=== PATIENT | female | born 1940 | race Caucasian/White ===

== ENCOUNTER 2018-02-08 05:44 | Inpatient (IN) | payer MEDICARE, BC ==
--- NOTE | 2018-01-28 20:45 | HP ---
HISTORY AND PHYSICAL: DATE OF SURGERY/ADMISSION: 02/08/18 DATE OF OFFICE VISIT: 01/28/18 SURGEON: Masha Ventura MD* (dictated by SHAMEKA Crain). PROCEDURE: Left total knee arthroplasty. CHIEF COMPLAINT: Left knee pain. HISTORY OF PRESENT ILLNESS: Ms. Pryor is a 77-year-old female with complaints of left knee pain secondary to advanced osteoarthritis. She has failed conservative management and elected to proceed with a left total knee arthroplasty, which is scheduled for 02/08/[address] Ventura. PAST MEDICAL HISTORY: Hypertension, aortic valve disorder, tricuspid valve disorder. PAST SURGICAL HISTORY: Hernia repair x2 with hysterectomy. CURRENT MEDICATIONS: 1. Naproxen 500 mg 1 to 2 tabs daily as needed. 2. Calcium with vitamin D. 3. Multivitamin. 4. Aspirin 81 mg daily. 5. Sertraline 100 mg daily. 6. Losartan potassium 50 mg daily. 7. Citrucel 500 mg 2 tabs twice a day as needed. ALLERGIES: ZITHROMAX. FAMILY HISTORY: Coronary artery disease, hypertension and colon cancer. SOCIAL HISTORY: She is a 77-year-old female. She lives with her . She does not smoke or use drugs. Uses occasional alcohol. REVIEW OF SYSTEMS: A complete 14-point review of systems was reviewed with the patient, it was all negative or noncontributory. PHYSICAL EXAMINATION GENERAL: She is well developed, well nourished, in no acute distress. VITAL SIGNS: She stands 5 feet 3 inches tall, weighs 140 pounds. Her blood pressure is 120/68, her heart rate is 90. HEENT: Normocephalic, atraumatic. NECK: Supple. No palpable lymph nodes. PULMONARY: The lungs are clear to auscultation bilaterally. CARDIO: Regular rate and rhythm. Strong S1, S2. ABDOMEN: Soft, nontender, and nondistended. MUSCULOSKELETAL: Left lower extremity, the skin is intact. There are no open wounds or abrasions. Just some tenderness over the medial and lateral joint line. Range of motion is 5 to 120 degrees with patellofemoral crepitus. She has 2+ dorsalis pedis pulses. Intact sensation in her lower extremity. Muscle group strengths are intact at 5/5. NEUROLOGICAL: She is alert and oriented x3. Cranial nerves II through XII are intact. ASSESSMENT AND PLAN: Ms. Pryor is a 77-year-old female with continued complaints of left knee pain secondary to advanced osteoarthritis. She has failed conservative management and elected to proceed with a left total knee arthroplasty, which is scheduled for 02/08/[address] Ventura discussed the risks and benefits of the surgery at today's visit and all of her questions were answered. She will follow with Dr. Ventura 2 weeks after the surgery. SHAMEKA CRAIN [id number]/[facility] #: [id number] MTDLuciano
[~2018-02-08 05:44] MED LIST: Buffered Lidocaine 0.9% SYRIN* 5 ML/SYR SYRINGE INTRADERM ONE
[2018-02-08] MEDS ORDERED: Famotidine IV* 10 MG/ML 2 ML (20 mg) IV ONE (06:00)
--- OUTSIDE RECORDS SUMMARY | 2018-02-08 06:10 | XMS REPORT ---
:1940 External Reference #:[id number] Author Organization [facility] Address [address] [place] [address] Phone [phone] Care Team Providers Name Role Phone Sharon Munguia M.D. Primary Care Physician Unavailable Payers Type Date Identification Numbers Payment Provider Subscriber Medicare Primary Policy Number: [id number] Medicare - NGS Iram Pryor PayID: [id number] [address] [place] [address] Commercial Policy Number: [id number] [place] Plan Arnie Pryor PayID: [id number] [address] [place] [address] Problems Date Description Provider Status Onset: Irregular heart beat Active Onset: Type 2 diabetes mellitus Active Note: Borderline since 2007 Onset: 01/03/2016 Nuclear senile cataract Conner Wei M.D. Active Onset: Anxiety Active Onset: 01/06/2017 Prediabetes Conner Wei M.D. Active Onset: 01/21/2018 Vitreous degeneration Conner Wei M.D. Active Family History Date Family Member(s) Problem(s) Comments Father No Current Problems Mother Cataract Social History Type Date Description Comments Marital Status Legal Status: Occupation Homemaker ETOH Use Denies alcohol use Smoking Patient has never smoked Recreational Drug Use Denies Drug Use Daily Caffeine Consumes on average 1 cup of hot tea per day Allergies, Adverse Reactions, Alerts Date Description Reaction Status Severity Comments 01/03/2016 Zithromax active Medications Medication Date Status Form Strength Qnty SIG Indications Ordering Provider Systane Active Solution 0.4-0.3% as needed Conner Wei M.D. Multi Vitamin Active Tablets Unknown Daily 000 Caltrate 600+D Active Tablets 600-400mg-U Unknown 000 nit Metamucil Active Powder 30.9% Unknown 000 Losartan Active Tablets 50mg [place], Potassium 000 Sharon Murry Sertraline HCL Active Tablets 100mg Take One Unknown 000 Tablet By Mouth Every Day Medications Administered in Office Medication Date Status Form Strength Qnty SIG Indications Ordering Provider Crizal Administered Injection Mckeon 0 Jagdeep A.B.Alicia Results Description No Information Procedures Date CPT Code Description Status 01/06/2017 88566 Determination Of Refractive State Completed 01/06/2017 99759 Est Patient Comprehensive Exam Completed 01/03/2016 08606 Determination Of Refractive State Completed 01/03/2016 29991 Est Patient Comprehensive Exam Completed 12/17/2014 82955 Determination Of Refractive State Completed 12/17/2014 37418 Est Patient Comprehensive Exam Completed 12/05/2013 51504 Determination Of Refractive State Completed 12/05/2013 30511 Est Patient Comprehensive Exam Completed 12/02/2012 59123 Determination Of Refractive State Completed 12/02/2012 62861 Est Patient Comprehensive Exam Completed 10/09/2011 06520 Est Patient Comprehensive Exam Completed 10/09/2011 46812 Determination Of Refractive State Completed 09/30/2010 66480 Determination Of Refractive State Completed 09/30/2010 70290 Est Patient Comprehensive Exam Completed 09/26/2009 13262 Determination Of Refractive State Completed 09/26/2009 56420 Est Patient Comprehensive Exam Completed 09/25/2008 93323 Determination Of Refractive State Completed 09/25/2008 96004 Est Patient Comprehensive Exam Completed 09/20/2007 93749 Determination Of Refractive State Completed 09/20/2007 27502 Est Patient Comprehensive Exam Completed 10/13/2004 40125 Determination Of Refractive State Completed 10/13/2004 73782 Est Patient Comprehensive Exam Completed 11/17/2000 113 Crizal Completed Plan of Care 01/21/2018 - Conner Wei M.D.H25.13 Age-related nuclear cataract, bilateralComments:Smoking can increase the risk of developing or worsening any eye related disease, as well as affect your overall health. If you are a smoker , we strongly recommend that you quit.If you are not a smoker, we strongly recommend that you do not start. You have been diagnosed with cataracts. If you are happy with your vision as it is now, then we will see you at your next scheduled appointment. If you feel like your vision is getting worse before your scheduled appointment, please call Varsha Cooper [phone].Follow up:1 Year Follow Up You can expect to have your eyes dilated at your next visit. If Dr. Wei orders any additional testing, it may require extra time. We recommend that you bring sunglasses, as dilationdrops often make you light sensitive until they wear off. We always recommend you bring someone to drive you home if you are uncomfortable driving with your eyes dilated. If you have any questions before your next visit, feel free to call our office at [phone].E11.9 Type 2 diabetes mellitus without complicationsComments:You have diabetes. I do not detect any changes in both of your retinas from diabetes at this time. Proper control of your diabetes is important for the health of your eyes. Changes in your eyes from diabetes can happen without symptoms, so it is important that you have your eyes examined. Dr. Wei has sent a report to your primary care doctor, letting them know there is no damage from the Diabetes in your eyes.H43.813 Vitreous degeneration, bilateralComments:You have a Posterior Vitreous Detachment. If you have any changes in your floaters or flashing lights , please contact this office.
--- OUTSIDE RECORDS SUMMARY | 2018-02-08 06:10 | XMS REPORT ---
:1940 External Reference #:[id number] Author Organization [facility] Address [address] [address] Phone [phone] Care Team Providers Name Role Phone Sharon Munguia MD Primary Care Physician Unavailable Payers Type Date Identification Numbers Payment Provider Subscriber Medicare Primary Effective: Policy Number: Medicare Iram Pryor 2006 [id number] PayID: [id number] [address] [place] [address] Medigap Part B Policy Number: [id number] [facility] Arnie Pryor PayID: [id number] [address] [place] [address] Problems Date Description Provider Status Onset: 10/01/2014 Chest pain Porter Sanderson M.D., Active FACC, FASNC Onset: 10/15/2015 Tricuspid valve disorder, Porter Sanderson M.D., Active non-rheumatic FACC, FASNC Onset: 12/14/2016 Localized, primary osteoarthritis Masha Ventura M.D. Active Onset: 10/13/2017 Aortic valve disorder Porter Sanderson M.D., Active FACC, FASNC Onset: 01/11/2018 Essential hypertension Porter Sanderson M.D., Active FACC, FASNC Family History Date Family Member(s) Problem(s) Comments General Mother 91 of CHF General Father HTN Father Hypertension Mother Congestive Heart Failure (CHF) Social History Type Date Description Comments Marital Status Lives With Family Occupation Retired Cigarette Use Never Smoked Cigarettes ETOH Use Rarely consumes alcohol Smoking Patient has never smoked Recreational Drug Use Denies Drug Use Daily Caffeine Decaf Hot Tea 3 cups per day Exercise Type/Frequency Exercises regularly exercise 2x a week General Hx Text Allergies, Adverse Reactions, Alerts Date Description Reaction Status Severity Comments 06/18/2014 Zithromax active nausea Medications Medication Date Status Form Strength Qnty SIG Indications Ordering Provider Naproxen 12/14/ Active Tablets 500mg 30tabs 1 tablet M25.562 Masha 2016 with food Lorenzo, by mouth M.D. twice a day as needed Caltrate 600+D / Active Tablets 600-400mg- 1 by mouth Unknown 0000 Unit every day Senior / Active Tablets 1 by mouth Unknown Multivitamin 0000 daily Plus Aspir-Low / Active Tablets 81mg 1 by mouth Unknown 0000 DR every other day Sertraline HCL / Active Tablets 100mg 1 by mouth Unknown 0000 every day Losartan / Active Tablets 50mg 1 by mouth Unknown Potassium 0000 every day Citrucel / Active Tablets 500mg 2 tabs Unknown 0000 once per day Metamucil / Hx 1 teaspoon Unknown 0000 - in a full 2016 water once a day Medications Administered in Office Medication Date Status Form Strength Qnty SIG Indications Ordering Provider Inj, Administered Injection Porter Gabriel Regadenoson, 018 Kin, 0.1 MG Jeanmarie, FACC, FASNC Technetium TC Administered Injection Porter Gabriel 99M 018 Noemi Sanderson M.D., FACC, Per Unit Dose FASNC Up To 40 Millicuries Depomedrol Administered Injection Masha 40MG Rema Ventura M.D. Depomedrol Administered Injection Masha 40MG 017 Jeanmarie Ventura Depomedrol Administered Injection Masha 40MG 017 Jeanmarie Ventura Technetium TC Administered Injection Porter Gabriel 99M 014 Noemi Sanderson M.D., FACC, Per Unit Dose FASNC Up To 40 Millicuries Vital Signs Date Vital Result Comment 01/28/2018 Height 63 inches 5'3" Heart Rate 90 /min BP Systolic 120 mmHg BP Diastolic 68 mmHg Respiratory Rate 16 /min Body Temperature 97.5 F Pain Level 1 01/11/2018 Height 63 inches 5'3" Weight 146.00 lb Heart Rate 64 /min BP Systolic Sitting 148 mmHg Lue reg cuff BP Diastolic Sitting 82 mmHg Lue reg cuff BP Systolic Standing 144 mmHg Lue BP Diastolic Standing 82 mmHg Lue Respiratory Rate 16 /min BMI (Body Mass Index) 25.9 kg/m2 Ejection Fraction 55-60% 10/04/17 10/18/2017 Height 63 inches 5'3" Weight 138.00 lb BP Systolic 140 mmHg BP Diastolic 80 mmHg Body Temperature 97.4 F Pain Level 4 BMI (Body Mass Index) 24.4 kg/m2 10/13/2017 Height 64 inches 5'4" Weight 144.00 lb No shoes Heart Rate 68 /min BP Systolic Sitting 148 mmHg Lue reg cuff BP Diastolic Sitting 88 mmHg Lue reg cuff BP Systolic Standing 156 mmHg Lue reg cuff BP Diastolic Standing 90 mmHg Lue reg cuff Respiratory Rate 15 /min BMI (Body Mass Index) 24.7 kg/m2 Ejection Fraction 55-60% 10/04/2017-echo 09/22/2017 Height 64 inches 5'4" Weight 140.00 lb Respiratory Rate 14 /min Pain Level 5 BMI (Body Mass Index) 24.0 kg/m2 05/14/2017 Height 64 inches 5'4" Weight 140.00 lb Heart Rate 76 /min BP Systolic 126 mmHg BP Diastolic 90 mmHg Respiratory Rate 16 /min Body Temperature 97.8 F Pain Level 0 BMI (Body Mass Index) 24.0 kg/m2 12/30/2016 Height 64 inches 5'4" Weight 139.00 lb Respiratory Rate 17 /min Pain Level 1 BMI (Body Mass Index) 23.9 kg/m2 12/14/2016 Height 64 inches 5'4" Weight 139.00 lb Heart Rate 64 /min BP Systolic 142 mmHg BP Diastolic 78 mmHg BMI (Body Mass Index) 23.9 kg/m2 10/15/2015 Height 53 inches 4'5" Weight 141.00 lb w/o shoes Heart Rate 70 /min irreg BP Systolic Sitting 142 mmHg Rue, reg cuff BP Diastolic Sitting 86 mmHg Rue, reg cuff BP Systolic Standing 130 mmHg Rue BP Diastolic Standing 76 mmHg Rue Respiratory Rate 18 /min BMI (Body Mass Index) 35.3 kg/m2 Ejection Fraction 55-60% as of 10/08/15 echo 10/01/2014 Height 53 inches 4'5" Weight 146.00 lb with out shoes BP Systolic Sitting 134 mmHg La reg cuff BP Diastolic Sitting 70 mmHg La reg cuff BP Systolic Standing 130 mmHg La reg cuff BP Diastolic Standing 70 mmHg La reg cuff BMI (Body Mass Index) 36.5 kg/m2 06/18/2014 Height 53 inches 4'5" Weight 148.00 lb without shoes Heart Rate 62 /min BP Systolic 132 mmHg L arm reg cuff BP Diastolic 80 mmHg L arm reg cuff BP Systolic Sitting 140 mmHg R arm Reg cuff BP Diastolic Sitting 80 mmHg R arm Reg cuff BP Systolic Standing 142 mmHg L arm standing BP Diastolic Standing 86 mmHg L arm standing Respiratory Rate 18 /min BMI (Body Mass Index) 37.0 kg/m2 Results Description No Information Procedures Date CPT Code Description Status 01/11/2018 67266 EKG Tracing & Interpretation Completed 12/20/2017 72541 Stress Test Completed 12/20/2017 02660 Myocardial Perfusion Imaging Tomographic (Spect) Completed Multiple Studies 10/13/2017 12367 EKG Tracing & Interpretation Completed 10/04/2017 36907 ECHO Transthoracic, Real-Time 2D With Doppler And Color Completed Flow 10/04/2017 79080 ECHO Transthoracic, Real-Time 2D With Doppler And Color Completed Flow 09/22/2017 24355 Inject/Drain Joint/Bursa Major Completed 09/14/2017 Colonoscopy Completed 12/14/2016 57714 Inject/Drain Joint/Bursa Major Completed 10/15/2015 17088 EKG Tracing & Interpretation Completed 10/08/2015 44425 ECHO Transthoracic, Real-Time 2D With Doppler And Color Completed Flow 08/13/2014 82598 Stress Test Completed 08/13/2014 15868 Myocardial Perfusion Imaging Tomographic (Spect) Completed Multiple Studies 06/20/2014 60252 Cardiac Event Monitor Completed 04/26/2014 81035 Holter Monitoring 24 HR New Completed 04/10/2014 22558 ECHO Transthoracic, Real-Time 2D With Doppler And Color Completed Flow Encounters Type Date Location Provider CPT E/M Dx Office Visit 01/11/2018 [facility] Porter Sanderson, 84145 Z01.810 2:45p Kait Murry, [facility], [facility] M17.12 I35.1 I36.1 I49.3 Office Visit 10/18/2017 8:15a [facility] Masha Ventura M.D. 26046 M25.562 [facility] M17.0 Office Visit 10/13/2017 1:00p [facility] Portersid Sanderson, 49314 I35.1 Kait Murry, DION, [facility]ST[facility] Office Visit 05/14/2017 2:00p [facility] Masha Ventura M.D. 12561 M25.561 [facility] M25.562 M17.0 Office Visit 12/30/2016 10:30a [facility] Masha Ventura M.D. 85953 M25.562 [facility] M25.462 M17.12 Office Visit 12/14/2016 9:30a [facility] M[facility] Ventura M.D. 75413 M25.562 [facility] M25.462 M17.12 Office Visit 10/15/2015 1:45p [facility] Porter Gabriel Sanderson, 43785 I36.1 Kait Murry, DION, [facility] Office Visit 10/01/2014 1:15p [facility] Porter Rios [facility], 21519 786.50 Kait Murry, FAC, [facility] Office Visit 06/18/2014 12:15p [facility] Porter Rios Sanderson, 20307 785.1 Kait Murry, [facility], [facility] 786.50 Plan of Care Future Appointment(s):02/18/2018 1:15 pm - Masha Ventura M.D. at [facility]02/08/2018 7:30 am - SHAMEKA Lin at [facility]02/08/2018 7:30 am - Julian Vila PA-C at [facility]02/08/2018 7:30 am - SHAMEKA Hoffman at [facility]02/08/2018 7:30 am - Masha Ventura M.D. at [facility]01/28/2018 - Masha Ventura M.D.M25.562 Pain in left kneeFollow up:Follow up: 2 weeks after [id number] Bilateral primary osteoarthritis of knee
[2018-02-08] MEDS ORDERED: Famotidine IV* 10 MG/ML 2 ML (20 mg) ONE (06:38)
[2018-02-08] MEDS ORDERED: ceFAZolin 2 GM in 100 MLS NS (*) BAG IVPB ONE (06:38)
[2018-02-08] MEDS ORDERED: Buffered Lidocaine 0.9% SYRIN* 5 ML/SYR SYRINGE ONE (06:38)
[2018-02-08] MEDS ORDERED: fentaNYL* 50 MCG/ML 2 ML VIAL (100 MCG VIAL) ONE (07:24)
[2018-02-08] MEDS ORDERED: Midazolam* 1 MG/ML 5 ML VIAL (5 MG) ONE (07:24)
[2018-02-08] MEDS ORDERED: oxyCODONE TAB* 5 MG TAB PO PRN ×2 (07:35→08:46)
[2018-02-08] MEDS ORDERED: Magnesium Hydroxide LIQ* 30 ML UDC PO PRN (07:35)
[2018-02-08] MEDS ORDERED: Bisacodyl SUPP* 10 MG SUPP PR PRN (07:35)
[2018-02-08] MEDS ORDERED: Polyethylene Glycol 3350* 17 GM PACKET PO PRN (07:35)
[2018-02-08] MEDS ORDERED: Acetaminophen TAB* 325 MG PO PRN ×2 (07:35→08:46)
[2018-02-08] MEDS ORDERED: Cyclobenzaprine TAB* 10 MG PO PRN (07:35)
[2018-02-08] MEDS ORDERED: Ondansetron INJ* 2 MG/ML VIAL IV PRN (07:35)
[2018-02-08] MEDS ORDERED: diPHENhydraMINE IV* 50 MG/ML 1 ml VIAL (BENADRYL) IV PRN (07:35)
[2018-02-08] MEDS ORDERED: oxyCODONE/Acetamin 5/325 MG* TAB PO PRN (07:35)
[2018-02-08] MEDS ORDERED: Morphine INJ* 2 MG/ML 1 ML CARPUJECT IV PRN (07:35)
[2018-02-08] MEDS ORDERED: Bupivacaine 0.5% SDV PF* 10-30ML VIAL ONE (07:41)
[2018-02-08] MEDS ORDERED: Lidocaine 1% MPF* 2 ML VIAL ONE (07:41)
[2018-02-08] MEDS ORDERED: KETAMINE HCL* 50 MG/ML 10 ML VIAL ONE (07:43)
[2018-02-08] MEDS ORDERED: methylPREDNISolone ACETATE 80* 80 MG/ML 1 ML VIAL ONE (07:45)
[2018-02-08] MEDS ORDERED: ceFAZolin 1 GM in Dextrose (*) 1 GM/50 ML BAG IVPB SCH (08:00)
[2018-02-08] MEDS ORDERED: Propofol* 10 MG/ML 20 ML BTL IV PUSH ONE ×2 (08:08→09:25)
[2018-02-08] MEDS ORDERED: Ketorolac INJ* 30 MG/ML 1 ML VIAL ONE (08:09)
[2018-02-08] MEDS ORDERED: Dexamethasone IV* 4 MG/ML 1 ML (4 MG) ONE (08:09)
[2018-02-08] MEDS ORDERED: Ondansetron INJ* 2 MG/ML VIAL ONE (08:09)
[2018-02-08] MEDS ORDERED: DiMENhydriNATE IV* 50 MG/ML VIAL IV PUSH PRN (08:46)
[2018-02-08] MEDS ORDERED: HYDROmorphone INJ* 1 MG/ML CARPUJECT SYRINGE IV PRN (08:46)
[2018-02-08] MEDS ORDERED: Naloxone* 0.4 MG/ML 1 ML VIAL IV PRN (08:46)
[2018-02-08] MEDS ORDERED: Gabapentin CAP(*) 300 MG PO ONE (08:49)
[2018-02-08] MEDS ORDERED: EPHEDrine (Pressors)* 50 MG/ML VIAL IV PUSH PRN (08:50)
[2018-02-08] MEDS ORDERED: Ropivacaine* 300 MG in NS 0.9% 250 ML* 240 ML EPIDURAL SCH (09:00)
--- NOTE | 2018-02-08 11:18 | RAD ---
Indication: Immediate postop exam following LEFT total knee replacement. Comparison: January 28, 2018 Technique: Portable AP and cross table lateral views LEFT knee. Report: Status post total knee replacement. Surgical drain in place. Post-op fluid and gas is seen in the joint space and anterior subcutaneous tissues. Alignment is anatomic. No periprosthetic fracture evident. IMPRESSION: Unremarkable immediate postoperative appearance following LEFT knee replacement.
[2018-02-08] MEDS ORDERED: Losartan TAB* 25 MG PO SCH (15:00)
[2018-02-08] MEDS: Ibuprofen TAB* 400 MG PO SCH ×2 (16:01→20:25)
[2018-02-08] MEDS: ceFAZolin 1 GM/10 ML SYRINGE IVPB Q8H IVPB SCH ×4 (16:01→23:57)
[2018-02-08] MEDS ORDERED: Warfarin TAB(*) 6 MG PO ONE (17:00)
[2018-02-08] MEDS: Magnesium Hydroxide LIQ* 30 ML UDC PO SCH ×2 (19:04→20:25)
[2018-02-08] MEDS: Docusate CAP* 100 MG PO SCH ×2 (19:04→20:25)
--- NOTE | 2018-02-08 21:32 | CONS ---
HOSPITAL MEDICINE CONSULTATION REPORT: DATE OF CONSULT: 02/08/18 ATTENDING PHYSICIAN: Dr. Masha Ventura. CONSULTING PHYSICIAN: Dr. Shahab Shelton (dictation provided by Jennifer Venegas NP) REASON FOR CONSULT: Medical comanagement in a patient admitted for left total knee arthroplasty. HISTORY OF PRESENT ILLNESS: Ms. Pryor is a 77-year-old female with a past medical history of hypertension, mild aortic valve regurgitation, and mild-to- moderate tricuspid regurgitation, who presents to the hospital today for planned left total knee arthroplasty. Please see the dictated H and P from Dr. Masha Ventura for complete details. In brief, the patient had failed outpatient measures to manage her left knee pain and disability and therefore opted for surgery today. She states prior to coming in, she was feeling in normal state of health and no complaints. She did see Dr. Sanderson, her resident services coordinator, preoperatively for evaluation as well as Dr. Munguia and she was deemed to be medically optimized and appropriate for surgery. PAST MEDICAL HISTORY: 1. Hypertension. 2. Mild aortic valve regurgitation. 3. Wywh-lu-xsgxgbej tricuspid regurgitation. 4. History of premature atrial and ventricular contractions that were symptomatic, but now resolved. PAST SURGICAL HISTORY: History of hernia repair x2 with hysterectomy. MEDICATIONS: As outpatient are: 1. Naproxen as needed. 2. Calcium with vitamin D. 3. Multivitamin. 4. Aspirin 81 mg p.o. daily. 5. Sertraline 100 mg p.o. daily. 6. Losartan 50 mg p.o. daily. 7. Citrucel 500 mg 2 tabs twice a day as needed. ALLERGIES: To AZITHROMYCIN. FAMILY HISTORY: Positive for coronary artery disease, hypertension, and colon cancer. SOCIAL HISTORY: She lives with her . No prior alcohol, tobacco, or drug use. She states that her would be the healthcare proxy. REVIEW OF SYSTEMS: A 14-point review of systems was completed with the patient and all those not mentioned above were negative. PHYSICAL EXAM: Vital Signs: Temperature 98.5, pulse rate 70, respiratory rate 16, O2 saturation 100% on 3 L nasal cannula, blood pressure 124/54. General: Ms. Pryor is examined shortly after arrival to short-stay surgical floor from PACU and is therefore a little bit sleepy. Neuro: She awakens easily to voice. She moves all extremities equally. There is no facial asymmetry or focal weakness. Extraocular movements are intact. Heart: S1, S2. No murmur, rub, or gallop, and regular. Lungs are clear to auscultation bilaterally with no accessory muscle use and good aeration. Abdomen is soft and nontender. Bowel sounds are positive x4. Extremities: No cyanosis or edema. Skin is intact. LABORATORY DATA: Preoperatively, WBC 4.1, hemoglobin , hematocrit 36, platelet count 199. Sodium 137, potassium 3.9, chloride 102, serum bicarbonate 31, BUN 18, creatinine 0.77, glucose 105. ASSESSMENT: Ms. Pryor is a 77-year-old female with a past medical history of hypertension and mild aortic regurgitation as well as emru-[id number] tricuspid regurgitation, who presents to the hospital today with plan for a left total knee arthroplasty. RECOMMENDATIONS: Our recommendations are as follows: 1. Postop day #0 status post left total knee arthroplasty: Management will be per Orthopedic Surgery. The patient will have physical and occupational therapy. She will have pain medication with bowel regimen and we will monitor her H and H. 2. Hypertension. The patient's blood pressure is running in the 120s. Plan to hold losartan in the a.m. until her blood pressure and hydration status can be reevaluated, but that will be resumed based on the clinical course. 3. DVT prophylaxis. With Lovenox and warfarin per Ortho. 4. Code status is full code. TIME SPENT: Approximately 45 minutes was spent in the consultation of this patient, more than half the time was spent with the patient at the bedside reviewing the events leading up to this hospitalization, performing the physical examination, and reviewing my plan of care. JENNIFER VENEGAS, GREGORY [id number]/[facility] #: [id number] ANTONIO
[2018-02-09] MEDS: Ibuprofen TAB* 400 MG PO SCH (03:04)
[2018-02-09 05:27] LABS: Hematocrit 25 % (35-47); Hemoglobin 8.5 g/dl (12.0-16.0); Mean Platelet Volume 9 um3 (7.4-10.4); Platelet Count 147 10^3/ul (150-450)
[2018-02-09 05:40] LABS: INR 1.12 (0.77-1.02)
[2018-02-09 05:44] LABS: EGFR Non-African American 75.7 (>60)
[2018-02-09] MEDS: oxyCODONE/Acetamin 5/325 MG* TAB PO PRN ×3 (07:21→22:34)
[2018-02-09] MEDS: ceFAZolin 1 GM/10 ML SYRINGE IVPB Q8H IVPB SCH ×2 (08:40)
[2018-02-09] MEDS: Docusate CAP* 100 MG PO SCH ×2 (08:42→19:44)
[2018-02-09] MEDS: Magnesium Hydroxide LIQ* 30 ML UDC PO SCH ×2 (08:42→19:44)
[2018-02-09] MEDS: Enoxaparin(*) 30 MG/0.3 ML SYR SUBCUT SCH (12:14)
--- NOTE | 2018-02-09 13:09 | PN ---
Subjective Date of Service: 02/09/18 Interval History: Patient feeling better. Rosario 3/10 in knee. Able to walk without significantly increased pain with PT. Patient has not urinated since small removed at 0800. Patient is passing flatus but has had no BM. Patient denies F/C, N/V, abdominal pain, Dizziness, changes in vision, or other pain. Patient complains of dry mouth. Family History: Unchanged from Admission Social History: Unchanged from Admission Past Medical History: Unchanged from Admission Objective Active Medications: Acetaminophen (Tylenol Tab*) 650 mg PO Q4H PRN PRN Reason: PAIN OR TEMPERATURE Bisacodyl (Dulcolax Supp*) 10 mg ID DAILY PRN PRN Reason: constipation Cyclobenzaprine HCl (Flexeril Tab*) 10 mg PO TID PRN PRN Reason: SPASMS Diphenhydramine HCl (Benadryl Iv*) 12.5 mg IV Q6H PRN PRN Reason: PRURITIS Docusate Sodium (Colace Cap*) 100 mg PO BID [facility] Last Admin: 02/09/18 08:42 Dose: 100 mg Enoxaparin Sodium (Lovenox(*)) 30 mg SUBCUT Q24H [facility] Last Admin: 02/09/18 12:14 Dose: 30 mg Lactated Ringer's (Lactated Ringers 1000 Ml Bag*) 1,000 mls @ 100 mls/hr IV PER RATE [facility] Last Admin: 02/09/18 08:39 Dose: 100 mls/hr Lactulose (Lactulose*) 30 ml PO Q6H PRN PRN Reason: constipation Magnesium Hydroxide (Milk Of Magnesia Liq*) 30 ml PO BID [facility] Last Admin: 02/09/18 08:42 Dose: 30 ml Magnesium Hydroxide (Milk Of Magnesia Liq*) 30 ml PO Q6H PRN PRN Reason: constipation Morphine Sulfate (Morphine Inj (Syringe)*) 2 mg IV Q2H PRN PRN Reason: PAIN Last Admin: 02/08/18 13:57 Dose: 2 mg Ondansetron HCl (Zofran Inj*) 4 mg IV Q6H PRN PRN Reason: nausea Last Admin: 02/08/18 11:51 Dose: 4 mg Oxycodone HCl (Roxycodone Tab*) 10 mg PO Q4H PRN PRN Reason: SEVERE PAIN Last Admin: 02/09/18 04:47 Dose: 10 mg Oxycodone/Acetaminophen (Percocet 5/325 Tab*) 2 tab PO Q4H PRN PRN Reason: PAIN Last Admin: 02/09/18 12:14 Dose: 2 tab Oxycodone/Acetaminophen (Percocet 5/325 Tab*) 1 tab PO Q4H PRN PRN Reason: PAIN Last Admin: 02/09/18 07:21 Dose: 1 tab Pharmacy Profile Note (Coumadin Per Pharmacy*) 0 note FOLLOW UP 1700 RANDY Polyethylene Glycol/Electrolytes (Miralax*) 17 gm PO DAILY PRN PRN Reason: Constipation Warfarin Sodium (Coumadin Tab(*)) 6 mg PO ONCE@1700 ONE PRN Reason: Protocol Stop: 02/09/18 17:01 Vital Signs - 8 hr 02/09/18 02/09/18 02/09/18 06:41 07:21 07:25 Temperature 97.8 F Pulse Rate 80 Respiratory 16 16 17 Rate Blood Pressure 129/58 (mmHg) O2 Sat by Pulse 97 Oximetry 02/09/18 02/09/18 02/09/18 08:00 10:22 11:49 Temperature 98.5 F Pulse Rate 71 Respiratory 18 16 17 Rate Blood Pressure 136/56 (mmHg) O2 Sat by Pulse 97 93 Oximetry 02/09/18 12:14 Temperature Pulse Rate Respiratory 18 Rate Blood Pressure (mmHg) O2 Sat by Pulse Oximetry Oxygen Devices in Use Now: None Appearance: Patient is a 77yo female who appears stated age and is sitting in the bed in [facility]. Eyes: No Scleral Icterus, PERRLA Ears/Nose/Mouth/Throat: NL Teeth, Lips, Gums, Clear Oropharnyx, - - Dry oropharynx. Neck: NL Appearance and Movements; NL JVP, Trachea Midline Respiratory: Symmetrical Chest Expansion and Respiratory Effort, Clear to Auscultation Cardiovascular: NL Sounds; No Murmurs; No JVD, RRR, - - 1+ edema in LLE. Abdominal: NL Sounds; No Tenderness; No Distention Lymphatic: No Cervical Adenopathy Extremities: No Clubbing, Cyanosis Skin: No Nodules or Sclerosis, - - Bulky dressing covering left knee. Neurological: Alert and Oriented x 3, NL Sensation, NL Muscle Strength and Tone Result Diagrams: 02/09/18 05:16 02/09/18 05:16 Assess/Plan/Problems-Billing Assessment: Patient is a 77yo female with a PMH significant for HTN who is S/P LTKA and is doing well. - Patient Problems (1) Status post left knee replacement Current Visit: Yes Status: Acute Code(s): Z96.652 - PRESENCE OF LEFT ARTIFICIAL KNEE JOINT SNOMED Code(s): 2413152871340 Comment: POD #1. Patient has well controlled pain. No urination or BM yet. No abdominal discomfort at this time. Small removed at 0800 today. Management per primary team. (2) HTN (hypertension) Current Visit: Yes Status: Acute Code(s): I10 - ESSENTIAL (PRIMARY) HYPERTENSION SNOMED Code(s): 54026110 Comment: Patient is normotensive with an upward trend. Continue to hold medications and resume when indicated. (3) Anemia Current Visit: Yes Status: Acute Code(s): D64.9 - ANEMIA, UNSPECIFIED SNOMED Code(s): 603455930 Comment: Slightly anemic preoperatively. Will monitor. Will order RBC indices from the AM. Was previously normocytic with slight anisocytosis. (4) DVT prophylaxis Current Visit: Yes Status: Acute Code(s): KUA1473 - SNOMED Code(s): 024994805 Comment: Lovenox to Warfarin. (5) Full code status Current Visit: Yes Status: Acute Code(s): Z78.9 - OTHER SPECIFIED HEALTH STATUS SNOMED Code(s): 851486015 Status and Disposition: Inpatient. Disposition per ortho.
--- NOTE | 2018-02-09 15:08 | OP ---
OPERATIVE REPORT: DATE OF OPERATION: 02/08/18 DATE OF : 36 ATTENDING SURGEON: Masha Ventura MD [employer] ENGINEER: SHAMEKA Vega Ms. did help throughout the procedure with preparation of the leg, wound retraction, manipulation of the knee, and wound closure. ANESTHESIOLOGIST: Dr. Brown. ANESTHESIA: Spinal. PRE-OP DIAGNOSES: 1. 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 2. Right knee osteoarthritis with pain and swelling. POST-OP DIAGNOSES: 1. 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 2. Right knee osteoarthritis with pain and swelling. OPERATIVE PROCEDURE: 1. Left total knee arthroplasty. 2. Right knee intraarticular injection of 80 mg Depo-Medrol and 6 cc of 0.5% Marcaine. TOURNIQUET TIME: 45 minutes. COMPLICATIONS: None. ESTIMATED BLOOD LOSS: 200 cc. SPECIMENS: Bone and cartilage from the left knee joint sent to pathology. HARDWARE USED: This is cemented [employer] total knee arthroplasty hardware, 2 packages of Simplex bone cement. For the femur, a size 5 narrow left posterior stabilized Legion femoral component. For the tibia, a size 3 left tibial base plate Josie II. For the insert, a 9-mm posterior stabilized articular insert size 3/4, and for the patella a 32 mm 3-peg all poly patella. BRIEF HISTORY/INDICATIONS: Ms. Pryor is a 77-year-old female with years of increasingly severe bilateral knee pain. She failed conservative treatment with antiinflammatories, pain medications, physical therapy, brace wear, and intraarticular injections. Due to continued pain and decreased quality of life she elected to undergo a left total knee arthroplasty. She did request a steroid injection in the right knee under anesthesia at the time of surgery. Radiographs showed bone-on- bone arthritis with valgus deformity of the bilateral knees. Informed consent was obtained from the patient. She understood the risks of surgery include, but were not limited to bleeding, infection, damage to nearby structures, continued pain, need for further surgery , intraoperative fracture, nerve palsy, hardware failure or loosening, knee stiffness, loss of motion, stroke, heart attack, blood clot, and . She wished to proceed. INTRAOPERATIVE FINDINGS: The patient was found to have severe end-stage arthritis of the left knee joint with tricompartmental full-thickness loss of cartilage. She had 12 degrees valgus deformity at the start of the case, this was corrected to anatomic alignment. She had a hyperplastic lateral femoral condyle. DESCRIPTION OF PROCEDURE: Ms. Pryor was identified in the preanesthesia unit. Informed consent was signed and placed in the chart. The patient's right knee was marked for injection and her left knee was marked for surgery, left total knee arthroplasty. She was taken to the operating room and placed under spinal anesthesia. A Castillo catheter was placed. The right knee was sterilely prepped and an intraarticular injection of 80 mg of Depo-Medrol and 6 cc 0.25% Marcaine were placed in the right knee. The patient's knee was then cleaned and a Band- Aid was applied. Formal time-out was performed before this procedure. Next, tourniquet was placed on the left thigh. Left lower extremity was prepped and draped in the usual sterile fashion. Preop time-out was made to correctly identify the patient, side and site. Appropriate perioperative antibiotics were given within 1 hour of incision. Tourniquet was inflated until the tourniquet time for this procedure was 45 minutes. A midline incision was made with a 10 blade and carried down to the extensor mechanism. A new 10 blade was used to make a standard medial parapatellar arthrotomy. The patella was subluxed laterally. Electrocautery was used to subperiosteally elevate the soft tissue off the superomedial tibia to the mid sagittal plane. The knee was flexed up. Anterior horn of the lateral meniscus and ACL were sharply released. A drill was used to enter the distal femur. Intramedullary distal femoral cutting guide was pinned on the distal femur. Lateral femoral condylar hypoplasia was noted and accounted for. Distal femoral cut was made with an oscillating saw. Next, the external rotation guide was placed on the distal femur and the distal femur was sized to a size 5. Size 5 multi- cutting jig was pinned on the distal femur. The oscillating saw was used to make the appropriate 4 chamfer cuts. PCL was completely released. The tibia was subluxed anteriorly. Extramedullary tibial cutting guide was pinned on the proximal tibia. Oscillating saw was used to make the proximal tibial cut perpendicular to the mechanical axis of the tibia. The bone was carefully removed. The knee was brought out into full extension. A spacer block had excellent fit. There was medial and lateral ligamentous balancing. Very minimal MCL laxity was noted. Flexion and extension gaps were well balanced. Lamina dog walker was placed both medially and laterally. Any remaining meniscus was carefully removed using electrocautery. Curved osteotome was used to remove posterior osteophytes. Tibial tray and drop adina were placed and once again confirmed a satisfactory tibial cut. A right size 5 narrow femoral trial was impacted on to the distal femur and had excellent fit. The box for the posterior stabilized implant was prepared using a reamer and box-cut osteotome. A size 3 tibial tray trial with a 9-mm insert trial was placed. The knee was taken through range of motion. Knee had full extension to 130 degrees of flexion with satisfactory patellofemoral tracking. The patella was everted. A 7 mm of patellar bone and cartilage was carefully removed using an oscillating saw. The patella was sized to a size 32. Three peg holes were drilled through the size 32 guide. The 32 trial patella was placed and the knee was taken through range of motion. A 7.5 thickness trial was chosen. There was satisfactory patellofemoral tracking. All trials were carefully removed. The tibia was subluxed anteriorly and sized to a size 3. Size 3 keel punch was used to prepare the proximal tibia. All bony cut surfaces were copiously irrigated with sterile saline and dried. The final implants were cemented into place starting with the tibia followed by the femur and last the patella. A 9-mm insert trial was placed and the knee was brought out into full extension. The cement was allowed to fully cure. Tourniquet was turned down at 45 minutes. Once the cement had fully cured, the knee was copiously irrigated. Electrocautery was used to obtain meticulous hemostasis. The insert trial was removed. Any excess cement was carefully removed from around the capsule and implant. Final insert chosen was a 9-mm posterior stabilized articular insert, size 3-4. This was locked into position on the tibial tray. Stability of the insert was checked and rechecked and noted to be stable. The knee was copiously irrigated with sterile saline. The extensor mechanism was closed using interrupted #1 Vicryl over a medium Hemovac drain. The rest of the incision was closed in a layered fashion with 0 and 2-0 Vicryl. Skin was closed using running 3-0 nylon suture. Sterile Xeroform, 4x4's, and Webril were used to cover the incision. Ricardo wrap and cold pack were placed over this. The patient's anesthesia was reversed without difficulty. She was taken to the PACU in stable condition. Intended weight bearing will be weight bearing as tolerated. Intended DVT prophylaxis will be Coumadin with a Lovenox bridge. [id number]/[facility] #: [id number] [facility] HOSPITALLuciano
--- NOTE | 2018-02-09 16:22 | PN ---
Progress Note - Progress Note Date of Service: 02/09/18 SOAP: Subjective: []Patient seen OOB in chair. She feels well with tolerable left knee pain. Denies dizziness, CP, SOB, leg numbness. Objective: [] Vital Signs Temp 98.1 F 02/09/18 15:44 Pulse 85 02/09/18 15:44 Resp 16 02/09/18 15:44 BP 144/72 02/09/18 15:44 Pulse Ox 92 02/09/18 16:00 Intake & Output 02/08/18 02/09/18 02/09/18 18:59 06:59 18:59 Intake Total 2225 1503 1860 Output Total 1350 1470 600 Balance 508 79 8718 Intake: IV Fluids 1800 1003 1395 ABX - CEFAZOLIN 20 10 LR 2731 500 9586 Oral 425 500 465 Output: Urine 600 Castillo 1350 1470 Laboratory Last Values Hgb 8.5 g/dl (12.0-16.0) L 02/09/18 05:16 Hct 25 % (35-47) L 02/09/18 05:16 Plt Count 147 10^3/ul (150-450) L 02/09/18 05:16 MPV 9 um3 (7.4-10.4) 02/09/18 05:16 INR (Anticoag Therapy) 1.12 (0.77-1.02) H 02/09/18 05:16 Sodium 130 mmol/L (133-145) L 02/09/18 05:16 Potassium 3.9 mmol/L (3.5-5.0) 02/09/18 05:16 Chloride 98 mmol/L (101-111) L 02/09/18 05:16 Carbon Dioxide 29 mmol/L (22-32) 02/09/18 05:16 Anion Gap 3 mmol/L (2-11) 02/09/18 05:16 BUN 11 mg/dL (6-24) 02/09/18 05:16 Creatinine 0.74 mg/dL (0.51-0.95) 02/09/18 05:16 Est GFR ( Amer) 97.4 (>60) 02/09/18 05:16 Est GFR (Non-Af Amer) 75.7 (>60) 02/09/18 05:16 BUN/Creatinine Ratio 14.9 (8-20) 02/09/18 05:16 Glucose 134 mg/dL (70-100) H 02/09/18 05:16 POC Glucose (mg/dL) 95 mg/dL (70-100) 02/08/18 06:54 Calcium 8.2 mg/dL (8.6-10.3) L 02/09/18 05:16 General: Well appearing, NAD LLE: Drain pulled with tip intact and without complication. Dressing CDI without surrounding erythema. DF/PF intact. DP/PT 2+. Sensation intact distally BL LE: Calves supple and nontender without erythema, edema or palpable cords. Assessment: []POD 1 sp left total knee arthroplasty 02/08 Dr Ventura Plan: []WBAT PT/OT lovenox, coumadin 6 mg
[2018-02-09] MEDS ORDERED: Warfarin TAB(*) 6 MG PO ONE (17:00)
[2018-02-10 05:45] LABS: ABS Basophils 0 10^3/ul (0-0.2); ABS Eosinophils 0.1 10^3/ul (0-0.6); ABS Lymphocytes 1.2 10^3/ul (1.0-4.8); ABS Monocytes 0.9 10^3/ul (0-0.8); ABS Neutrophils 3.8 10^3/ul (1.5-7.7); ABS Nucleated RBC 0 10^3/ul; Eosinophil % 1.2 % (0-6); Hematocrit 24 % (35-47); Hemoglobin 8.1 g/dl (12.0-16.0); Lymphocyte % 20.4 % (25-47); Mean Corpuscular HGB Conc 34 g/dl (31-36); Mean Corpuscular Hemoglobin 32 pg (27-31); Mean Corpuscular Volume 94 fL (80-97); Mean Platelet Volume 9 um3 (7.4-10.4); Nucleated Red Blood Cells % 0; Platelet Count 136 10^3/ul (150-450); Red Blood Count 2.58 10^6/ul (4.0-5.4); Red Cell Distribution Width 14 % (10.5-15); White Blood Count 6.1 10^3/ul (3.5-10.8)
[2018-02-10 06:02] LABS: INR 1.35 (0.77-1.02)
[2018-02-10] MEDS: Magnesium Hydroxide LIQ* 30 ML UDC PO SCH (08:24)
[2018-02-10] MEDS: oxyCODONE/Acetamin 5/325 MG* TAB PO PRN ×2 (08:24→13:44)
[2018-02-10] MEDS: Docusate CAP* 100 MG PO SCH (08:24)
--- NOTE | 2018-02-10 09:15 | PN ---
Progress Note - Progress Note Date of Service: 02/10/18 SOAP: Subjective: []Patient seen at bedside. She has no complaints, left knee pain is tolerable. No CP, SOB, leg numbness, nausea or dizziness. Patient desires to and feels safe to discharge home today. Objective: [] Vital Signs Temp 98.8 F 02/10/18 07:48 Pulse 88 02/10/18 08:27 Resp 20 02/10/18 08:24 BP 135/68 02/10/18 07:48 Pulse Ox 94 02/10/18 08:27 Intake & Output 02/09/18 02/10/18 02/10/18 18:59 06:59 18:59 Intake Total 1860 500 Output Total 1200 1550 Balance 660 -1050 Intake: IV Fluids 1395 ABX - CEFAZOLIN 10 LR 1385 Oral 465 500 Output: Urine 1200 1550 Laboratory Last Values WBC 6.1 10^3/ul (3.5-10.8) 02/10/18 04:43 RBC 2.58 10^6/ul (4.0-5.4) L 02/10/18 04:43 Hgb 8.1 g/dl (12.0-16.0) L 02/10/18 04:43 Hct 24 % (35-47) L 02/10/18 04:43 MCV 94 fL (80-97) 02/10/18 04:43 MCH 32 pg (27-31) H 02/10/18 04:43 MCHC 34 g/dl (31-36) 02/10/18 04:43 RDW 14 % (10.5-15) 02/10/18 04:43 Plt Count 136 10^3/ul (150-450) L 02/10/18 04:43 MPV 9 um3 (7.4-10.4) 02/10/18 04:43 Neut % (Auto) 62.7 % (38-83) 02/10/18 04:43 Lymph % (Auto) 20.4 % (25-47) L 02/10/18 04:43 [place] % (Auto) 15.4 % (0-7) H 02/10/18 04:43 Eos % (Auto) 1.2 % (0-6) 02/10/18 04:43 Baso % (Auto) 0.3 % (0-2) 02/10/18 04:43 Absolute Neuts (auto) 3.8 10^3/ul (1.5-7.7) 02/10/18 04:43 Absolute Lymphs (auto) 1.2 10^3/ul (1.0-4.8) 02/10/18 04:43 Absolute Monos (auto) 0.9 10^3/ul (0-0.8) H 02/10/18 04:43 Absolute Eos (auto) 0.1 10^3/ul (0-0.6) 02/10/18 04:43 Absolute Basos (auto) 0 10^3/ul (0-0.2) 02/10/18 04:43 Absolute Nucleated RBC 0 10^3/ul 02/10/18 04:43 Nucleated RBC % 0 02/10/18 04:43 INR (Anticoag Therapy) 1.35 (0.77-1.02) H 02/10/18 04:42 Sodium 135 mmol/L (133-145) 02/10/18 04:43 Potassium 3.9 mmol/L (3.5-5.0) 02/09/18 05:16 Chloride 98 mmol/L (101-111) L 02/09/18 05:16 Carbon Dioxide 29 mmol/L (22-32) 02/09/18 05:16 Anion Gap 3 mmol/L (2-11) 02/09/18 05:16 BUN 11 mg/dL (6-24) 02/09/18 05:16 Creatinine 0.74 mg/dL (0.51-0.95) 02/09/18 05:16 Est GFR ( Amer) 97.4 (>60) 02/09/18 05:16 Est GFR (Non-Af Amer) 75.7 (>60) 02/09/18 05:16 BUN/Creatinine Ratio 14.9 (8-20) 02/09/18 05:16 Glucose 134 mg/dL (70-100) H 02/09/18 05:16 POC Glucose (mg/dL) 95 mg/dL (70-100) 02/08/18 06:54 Calcium 8.2 mg/dL (8.6-10.3) L 02/09/18 05:16 Vitamin B12 Cancelled 02/10/18 04:43 Folate Cancelled 02/10/18 04:43 General: Well appearing, NAD LLE: Dressing changed, incision with well approximated wound edges, CDI. No surrounding erythema. DF/PF intact. DP/PT 2+. Sensation intact distally BL LE: Calves supple and nontender without erythema, edema or palpable cords. Assessment: []POD 2 sp left total knee arthroplasty 02/08 Dr Ventura Plan: []WBAT PT/OT lovenox, coumadin 6 mg DC home today
[2018-02-10] MEDS ORDERED: Losartan TAB* 25 MG PO SCH (11:00)
[2018-02-10] MEDS: Enoxaparin(*) 30 MG/0.3 ML SYR SUBCUT SCH (11:12)
--- NOTE | 2018-02-10 11:24 | PN ---
Subjective Date of Service: 02/10/18 Interval History: Patient states pain is 4/10 at rest and not worse with walking. Patient states that she feels good, is urinating and passing flatus but has no BM and doesn't feel like she needs to have one at this time. Patient denies lightheadedness, dizziness on standing, CP, SOB, or palpitations. 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 Patient denies any knowledge of being anemic in the past. Family History: Unchanged from Admission Social History: Unchanged from Admission Past Medical History: Unchanged from Admission Objective Active Medications: Acetaminophen (Tylenol Tab*) 650 mg PO Q4H PRN PRN Reason: PAIN OR TEMPERATURE Last Admin: 02/10/18 08:23 Dose: 650 mg Bisacodyl (Dulcolax Supp*) 10 mg MS DAILY PRN PRN Reason: constipation Cyclobenzaprine HCl (Flexeril Tab*) 10 mg PO TID PRN PRN Reason: SPASMS Diphenhydramine HCl (Benadryl Iv*) 12.5 mg IV Q6H PRN PRN Reason: PRURITIS Docusate Sodium (Colace Cap*) 100 mg PO BID [facility] Last Admin: 02/10/18 08:24 Dose: 100 mg Enoxaparin Sodium (Lovenox(*)) 30 mg SUBCUT Q24H [facility] Last Admin: 02/10/18 11:12 Dose: 30 mg Lactated Ringer's (Lactated Ringers 1000 Ml Bag*) 1,000 mls @ 100 mls/hr IV PER RATE [facility] Last Admin: 02/09/18 08:39 Dose: 100 mls/hr Lactulose (Lactulose*) 30 ml PO Q6H PRN PRN Reason: constipation Losartan Potassium (Cozaar Tab*) 50 mg PO DAILY [facility] Last Admin: 02/10/18 11:12 Dose: 50 mg Magnesium Hydroxide (Milk Of Magnesia Liq*) 30 ml PO BID [facility] Last Admin: 02/10/18 08:24 Dose: 30 ml Magnesium Hydroxide (Milk Of Magnesia Liq*) 30 ml PO Q6H PRN PRN Reason: constipation Morphine Sulfate (Morphine Inj (Syringe)*) 2 mg IV Q2H PRN PRN Reason: PAIN Last Admin: 02/08/18 13:57 Dose: 2 mg Ondansetron HCl (Zofran Inj*) 4 mg IV Q6H PRN PRN Reason: nausea Last Admin: 02/08/18 11:51 Dose: 4 mg Oxycodone HCl (Roxycodone Tab*) 10 mg PO Q4H PRN PRN Reason: SEVERE PAIN Last Admin: 02/09/18 04:47 Dose: 10 mg Oxycodone/Acetaminophen (Percocet 5/325 Tab*) 2 tab PO Q4H PRN PRN Reason: PAIN Last Admin: 02/09/18 12:14 Dose: 2 tab Oxycodone/Acetaminophen (Percocet 5/325 Tab*) 1 tab PO Q4H PRN PRN Reason: PAIN Last Admin: 02/10/18 08:24 Dose: 1 tab Pharmacy Profile Note (Coumadin Per Pharmacy*) 0 note FOLLOW UP 1700 RANDY Last Admin: 02/09/18 17:54 Dose: 1 note Polyethylene Glycol/Electrolytes (Miralax*) 17 gm PO DAILY PRN PRN Reason: Constipation Warfarin Sodium (Coumadin Tab(*)) 6 mg PO ONCE@1700 ONE PRN Reason: Protocol Stop: 02/10/18 17:01 Vital Signs - 8 hr 02/10/18 02/10/18 02/10/18 04:05 04:31 07:48 Temperature 101.0 F 99.6 F 98.8 F Pulse Rate 85 94 Respiratory 16 16 Rate Blood Pressure 136/59 135/68 (mmHg) O2 Sat by Pulse 96 91 Oximetry 02/10/18 02/10/18 02/10/18 08:00 08:24 08:27 Temperature Pulse Rate 88 Respiratory 18 20 Rate Blood Pressure (mmHg) O2 Sat by Pulse 94 94 Oximetry 02/10/18 11:10 Temperature Pulse Rate Respiratory 18 Rate Blood Pressure (mmHg) O2 Sat by Pulse Oximetry Oxygen Devices in Use Now: None Appearance: Patient is a 77yo female who appears stated age and is sitting in the bed in [place]. Eyes: No Scleral Icterus, PERRLA Ears/Nose/Mouth/Throat: NL Teeth, Lips, Gums, Clear Oropharnyx, Mucous Membranes Moist Neck: NL Appearance and Movements; NL JVP, Trachea Midline Respiratory: Symmetrical Chest Expansion and Respiratory Effort, Clear to Auscultation Cardiovascular: NL Sounds; No Murmurs; No JVD, RRR, - - 1+ edema in LLE. Abdominal: NL Sounds; No Tenderness; No Distention, No Hepatosplenomegaly Lymphatic: No Cervical Adenopathy Extremities: No Edema, No Clubbing, Cyanosis Skin: No Rash or Ulcers, No Nodules or Sclerosis Neurological: Alert and Oriented x 3, NL Sensation, NL Muscle Strength and Tone , - - CN II-XII intact. Result Diagrams: 02/10/18 04:43 02/10/18 04:43 Assess/Plan/Problems-Billing Assessment: Patient is a 77yo female with a PMH significant for HTN who is S/P LTKA and is doing well. - Patient Problems (1) Status post left knee replacement Current Visit: Yes Status: Acute Code(s): Z96.652 - PRESENCE OF LEFT ARTIFICIAL KNEE JOINT SNOMED Code(s): 5694399939004 Comment: POD #2. Patient has well controlled pain. Urinating independantly. Passing flatus but no BM yet. No abdominal discomfort at this time. Pain 4/10 at rest. Management per primary team. (2) HTN (hypertension) Current Visit: Yes Status: Acute Code(s): I10 - ESSENTIAL (PRIMARY) HYPERTENSION SNOMED Code(s): 54947163 Comment: Normotensive. Resume Losartan (3) Anemia Current Visit: Yes Status: Acute Code(s): D64.9 - ANEMIA, UNSPECIFIED SNOMED Code(s): 238085874 Comment: Slightly anemic preoperatively. Trended down slightly to 8.1. Hyperchromic. Folate and B12 pending. Patient should have a CBC within 1 week of discharge. History of CLL precursor. Recommend possible hematology follow up if no other explanation. (4) DVT prophylaxis Current Visit: Yes Status: Acute Code(s): LEF4383 - SNOMED Code(s): 953549584 Comment: Lovenox to Warfarin. INR 1.35 today. (5) Full code status Current Visit: Yes Status: Acute Code(s): Z78.9 - OTHER SPECIFIED HEALTH STATUS SNOMED Code(s): 714871708 Status and Disposition: Inpatient. Disposition per ortho.
[2018-02-10 11:57] VITALS: BP 132/63
[2018-02-10] MEDS ORDERED: Warfarin TAB(*) 6 MG PO ONE (17:00)
--- NOTE | 2018-02-11 23:05 | DS ---
DISCHARGE SUMMARY: DATE OF ADMISSION: 02/08/18 same-day of surgery. DATE OF DISCHARGE: ATTENDING PROVIDER: Dr. Masha Ventura.* (DICTATED BY SHAMEKA VERA) CLIPPER AUTOMATIC: SHAMEKA Vega PREOP DIAGNOSES: 1. 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 2. Right knee osteoarthritis with pain and swelling. OPERATIVE PROCEDURE: 1. Left total knee arthroplasty. 2. Right knee intra-articular injection of 80 mg of Depo-Medrol and 6 cc of 0.5 % Marcaine. HISTORY OF PRESENT ILLNESS: Ms. Pryor is a 77-year-old female with increasingly severe bilateral knee pain. She has failed conservative management with anti- inflammatories, pain medication, physical therapy, and brace wearing. She elected to undergo a left total knee arthroplasty and right knee intra- articular injection. HOSPITAL COURSE: The patient was admitted to [facility] on . She underwent a left total knee arthroplasty and a right knee intra- articular injection without complication. She recovered briefly in the PACU and then was transferred to the short-stay surgical unit in stable condition. During her stay, she was seen by Physical Therapy, Occupational Therapy, and Medicine. On postop day 1, she was well appearing, in no acute distress. Drain was pulled by Dr. Ventura with tip intact and without complication. Dressing was clean, dry, and intact without surrounding erythema. Dorsiflexion and plantarflexion intact. Dorsalis pedis and posterior tibial pulse 2+. Sensation intact distally bilateral. Calves supple and nontender without erythema, edema, or palpable cords. Postop day 2, temperature 98.8, pulse 88, respiratory rate 20, blood pressure 135/68, pulse ox 94. Hemoglobin 8.1, hematocrit 24, platelet count 136. INR 1.35. The patient was again well appearing and in no acute distress. Her dressing was changed and the incision was clean, dry, and intact with well approximated wound edges. She was being orthopedically and medically stable for discharge home. DISCHARGE MEDICATIONS: Resume home medications aside from naproxen. New medications include: 1. Docusate 100 mg p.o. b.i.d. 2. Percocet 5/325 one to two tabs every 4 to 6 hours p.r.n., max daily dose of 10. 3. Warfarin 2 mg 1 to 3 tabs daily adjusted by INR draws. DISCHARGE PLAN: Weightbearing as tolerated. Shower postop day 3, do not submerge the wound. Home nurses to do wound check and blood draws Mondays and . At your first blood draw, you have a CBC rechecked noted from a visiting home nurse service. Coumadin dosing you will take 6 mg on 02/10/18, through 02/13/18 2 mg daily and recheck the INR for new dosing instructions on 02/14/18. Pain control with Percocet 5/325 one to two tabs every 4 to 6 hours as needed for pain, max daily dose of 10 tablets. Follow up with Dr. Ventura within 10 to 14 days. SHAMEKA VERA [id number]/[facility] #: [id number] [facility]
== END 2018-02-10 14:12 | disposition home health service (06) | DRG 470 ==
LOC: AA 06:05 → SSU 11:32
PROVIDERS: ADMIT Orthopaedic Surgery Adult Reconstructive Orthopaedic Surgery; ATTEND Orthopaedic Surgery Adult Reconstructive Orthopaedic Surgery
PROC: 3E0U33Z Introduction of Anti-inflammatory into Joints, Percutaneous Approach (ICD-10-PCS; 2018-02-08)
PROC: 3E0U3BZ Introduction of Anesthetic Agent into Joints, Percutaneous Approach (ICD-10-PCS; 2018-02-08)
PROC: 0SRD0J9 Replacement of Left Knee Joint with Synthetic Substitute, Cemented, Open Approach (ICD-10-PCS; principal; 2018-02-08 07:30)
DX: M17.0 Bilateral primary osteoarthritis of knee (principal); C91.10 Chronic lymphocytic leukemia of B-cell type not having achieved remission; D64.9 Anemia, unspecified; I08.2 Rheumatic disorders of both aortic and tricuspid valves; I10 Essential (primary) hypertension; M21.061 Valgus deformity, not elsewhere classified, right knee; F41.9 Anxiety disorder, unspecified; I83.90 Asymptomatic varicose veins of unspecified lower extremity; M25.762 Osteophyte, left knee; M21.062 Valgus deformity, not elsewhere classified, left knee; Z79.01 Long term (current) use of anticoagulants; Z82.49 Family history of ischemic heart disease and other diseases of the circulatory system; Z80.0 Family history of malignant neoplasm of digestive organs; Z88.1 Allergy status to other antibiotic agents; Z72.89 Other problems related to lifestyle; Z90.710 Acquired absence of both cervix and uterus
CPT/HCPCS: 36415; 80048; 82607; 82746; 84300; 85014; 85018; 85025; 85049; 85610; 88305; 88311; 93005; 94760; A9270-GY; C1776; G8978-GP-CI; G8978-GP-CJ; G8979-GP-CH; G8979-GP-CI; G8987-GO-CK; G8988-GO-CI; J0690; J1040; J1100; J1650; J1885; J2250; J2270; J2405; J2704; J2795; J3010

== ENCOUNTER 2019-08-29 07:06 | Day surgery (SDC) | payer MEDICARE, BC ==
--- NOTE | 2019-08-21 13:47 | HP ---
AMENDED REPORT NOW INCLUDES DESIGNATED COSIGNER PREOPERATIVE HISTORY AND PHYSICAL: DATE OF ADMISSION/SURGERY: 08/29/19 DATE OF OFFICE VISIT/ENCOUNTER: 08/17/19 ATTENDING SURGEON: Ewelina Shrestha MD * (DICTATED BY SHAMEKA CHRISTIANSON) PROCEDURE: Excision mass, right thumb. HISTORY OF PRESENT ILLNESS: This is an 79-year-old female who complains of a lump on the dorsal aspect of her right thumb. She recalls no injury, but the lump has been present for several months. She says that it has caused a deformity of her fingernail as well. She has never noticed any breaks on the skin or any drainage coming from the lump. She would like to have the lump removed. PAST MEDICAL HISTORY: 1. Hypertension. 2. Anxiety. 3. History of tricuspid valve disorder. PAST SURGICAL HISTORY: 1. Hernia repair x2. 2. Hysterectomy. 3. Left total knee arthroplasty. CURRENT MEDICATIONS: 1. Amoxicillin 500 mg 4 tabs prior to dental work. 2. Aspirin 81 mg daily. 3. Caltrate 600 plus vitamin D daily. 4. Citrucel 500 mg 2 tabs daily. 5. Losartan potassium 50 mg daily. 6. Senior vitamin plus 1 tab daily. 7. Sertraline HCl 100 mg daily. ALLERGIES: ZITHROMAX, reaction unknown. FAMILY MEDICAL HISTORY: Congestive heart failure, hypertension, cancer. SOCIAL HISTORY: The patient is retired. She is recently . She denies tobacco use and recreational drug use. She drinks alcohol on occasion. REVIEW OF SYSTEMS: Negative for general, cephalic, cardiovascular, respiratory , GI, , other musculoskeletal, integumentary, endocrine, neurologic, and hematologic symptoms. Infectious Disease: Negative for MRSA, hepatitis C, HIV. PHYSICAL EXAMINATION GENERAL: A well-developed, well-nourished 79-year-old female, in no acute distress. VITAL SIGNS: Height 5 feet 3-1/4 inches, weight 156 pounds. Pulse rate 84, blood pressure 126/80. HEENT: Normocephalic, atraumatic. Pupils are equal, round, and reactive to light and accommodation. Extraocular movements are intact. Throat is clear. NECK: Supple. No palpable lymph nodes. PULMONARY: Lungs are clear to auscultation bilaterally. No wheezes, rales, or rhonchi. CARDIOVASCULAR: Regular rate and rhythm. S1, S2. No murmurs, rubs, or gallops. No edema. ABDOMEN: Positive bowel sounds. Soft, nontender. NEUROLOGICAL: Alert and oriented x3. Cranial nerves II through XII are intact. Sensation is intact to light touch. MUSCULOSKELETAL: On examination of her right thumb, she has a small ganglion cyst distal to the IP joint. It is causing a deformity of the fingernail. She has active flexion and extension of the IP joint without pain and minimal swelling around the joint, but no tenderness. Neurovascular function is intact. Skin is intact. IMAGING STUDIES: X-rays, AP, lateral, and oblique of the right thumb show significant degenerative arthritis of the IP joint. 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 PLAN: The patient is scheduled to undergo an excision mass, right thumb, with Dr. Shrestha on 08/29/19. She will return to the office 10 days postop for followup and suture removal. A prescription for Tylenol with Codeine was e- scribed to the patient's pharmacy for postoperative pain management. SHAMEKA CHRISTIANSON [id number]/[facility] #: [id number] [place]
[2019-08-29] MEDS ORDERED: Famotidine IV* 10 MG/ML 2 ML (20 mg) ONE (07:12)
[2019-08-29] MEDS ORDERED: Midazolam* 1 MG/ML 5 ML VIAL (5 MG) ONE (08:07)
[2019-08-29] MEDS ORDERED: Lidocaine 1% INJ* 10 MG/ML 30 ML SDV ONE (08:12)
[2019-08-29] MEDS ORDERED: Propofol* 10 MG/ML 20 ML BTL ONE (08:19)
[2019-08-29] MEDS ORDERED: Lidocaine 2% PF * 5 ML VIAL ONE (08:19)
[2019-08-29] MEDS ORDERED: Ketorolac INJ* 30 MG/ML 1 ML VIAL ONE (08:33)
[2019-08-29] MEDS ORDERED: Acetaminophen TAB* 325 MG PO PRN (08:50)
[2019-08-29 09:35] VITALS: BP 170/68
--- NOTE | 2019-08-29 21:05 | OP ---
DATE OF OPERATION: 08/29/19 [facility] DATE OF : 36 SURGEON: Ewelina Shrestha MD. LOUVER DOOR ASSEMBLER: SHAMEKA Wolfe. ANESTHESIA: Local MAC. PRE-OP DIAGNOSIS: Right thumb mass. POST-OP DIAGNOSIS: Right thumb mass. OPERATIVE PROCEDURE: Removal of right thumb mass. INDICATIONS: Iram is an 79-year-old female who has a painful mass on the dorsal aspect of her right thumb. It is a mucous cyst and it has caused a deformity of her finger nail. She presents for removal. ESTIMATED BLOOD LOSS: Zero. TOURNIQUET TIME: About 15 minutes. DESCRIPTION OF PROCEDURE: The patient was brought to the operating room and was given a sedation anesthetic and a digital block with 10 cc of 1% plain lidocaine. The skin of her right hand and forearm was prepped and draped in the usual sterile fashion. The thumb was exsanguinated with a tourniquet, which was left in place for the duration of the procedure. An H shaped incision was made on the dorsal aspect of the thumb DIP joint. The skin flaps were elevated away from the ganglion cyst. The cyst was traced down to its origin at the IP joint capsule and removed with a small portion at the joint capsule. Either side of the extensor tendon was incised and the underlying osteophytes were removed with a rongeur. The wound was irrigated with saline and the skin edges were reapproximated with 4-0 nylon suture. The wound was dressed with Xeroform, 4x4, Webril, and Coban. The patient tolerated the procedure well and was brought to the recovery room in good condition. [id number]/[facility] #: [id number] [facility]
== END 2019-08-29 09:22 | disposition home or self-care (01) ==
LOC: OREAST 07:06
PROVIDERS: ATTEND Orthopaedic Surgery
DX: M67.441 Ganglion, right hand (principal); I10 Essential (primary) hypertension; F41.9 Anxiety disorder, unspecified; Z79.82 Long term (current) use of aspirin; Z88.8 Allergy status to other drugs, medicaments and biological substances
CPT/HCPCS: 88304; J1885; J2250; J2704